=== PATIENT | male | born 1945 | race Caucasian/White ===

== ENCOUNTER 2024-12-22 17:27 | Emergency (ER) | payer OTHER ==
[2024-12-22] MEDS ORDERED: Sodium Chloride 0.9% 10 ML Syringe FLUSH PRN (18:36)
[2024-12-22 18:45] LABS: BASOPHILS ABSOLUTE AUTO 0.05 K/uL (0.00-0.10); BASOPHILS PERCENT AUTO 0.2 % (0.1-1.3); EOSINOPHILS PERCENT AUTO 0.0 % (0.0-5.4); IMMATURE GRAN ABSOLUTE AUTO 0.38 K/uL (0.00-0.23); IMMATURE GRAN PERCENT AUTO 1.8 % (0.0-0.7); LYMPHOCYTES ABSOLUTE AUTO 0.58 K/uL (0.8-3.3); LYMPHOCYTES PERCENT AUTO 2.7 % (11.4-47.7); MONOCYTES ABSOLUTE AUTO 1.06 K/uL (0.20-0.90); MONOCYTES PERCENT AUTO 5.0 % (3.3-12.6); NEUTROPHILS ABSOLUTE AUTO 19.21 K/uL (1.0-7.6); NEUTROPHILS PERCENT AUTO 90.3 % (40.0-78.1); PLATELET COUNT,PLT 433 K/uL (130-375); RED BLOOD CELL COUNT 3.77 M/uL (4.14-5.76); WHITE BLOOD CELL COUNT,WBC 21.3 K/uL (3.2-11.0)
[2024-12-22 18:47] LABS: EOSINOPHILS ABSOLUTE AUTO 0.01 K/uL (0.00-0.40)
[2024-12-22 19:08] LABS: A/G RATIO 0.5 (1.2-2.2); ALANINE AMINOTRANSFERASE,ALT 217 U/L (12-78); ASPARTATE AMNIOTRANSFERASE,AST 111 U/L (15-37); BILIRUBIN TOTAL 23.5 mg/dL (0.2-1.0); BLOOD UREA NITROGEN,BUN 71 mg/dL (7-18); CARBON DIOXIDE,CO2 18 mmol/L (21-32); CHLORIDE,CL 99 mmol/L (100-108); EST CRCL DRUG DOSING (CG) 15.83 mL/min; ESTIMATED GFR 16 mL/min (>60); GLUCOSE RANDOM 130 mg/dL (74-106); POTASSIUM,K 4.2 mmol/L (3.6-5.2); PROTEIN TOTAL,TP 6.7 g/dL (6.4-8.2); SODIUM,NA 133 mmol/L (140-148)
[2024-12-22 19:18] LABS: LACTATE DEHYDROGENASE,LDH 132.0 U/L (85-227)
[2024-12-22 19:19] LABS: CREATININE 3.6 mg/dL (0.8-1.3)
[2024-12-22 19:37] LABS: BILIRUBIN DIRECT 19.45 mg/dL (0.0-0.2); BILIRUBIN TOTAL 23.6 mg/dL (0.2-1.0)
[2024-12-22 21:30] LABS: INR 1.6
[2024-12-26 17:46] LABS: GAMMA GLUTAMYL TRANSFERASE 969 U/L (8-61)
== END 2024-12-23 01:00 ==
LOC: JP.ED 17:27
DX: K86.89 Other specified diseases of pancreas (principal)
CPT/HCPCS: 36415; 71250; 74176; 80053; 82140; 82247; 82248; 82977; 83605; 83615; 85025; 85610; 86140; 96360; 96361; 99285; J7030